=== PATIENT | female | born 1960 | race Caucasian/White ===

== ENCOUNTER 2021-07-21 11:28 | Observation (INO) | payer OTHER, SELFPAY ==
[2021-07-21] VITALS (35 sets, daily range): BP systolic 99–137; BP diastolic 67–87; PULSE 76–134; RESP 11–34; TEMP 36.1–37.2; O2SAT 92–99; BMI 25.8
--- NOTE | 2021-07-21 11:39 | DI.RAD.S_ITS ---
PROCEDURE: XR CHEST 1V INDICATIONS: chest pain TECHNIQUE: One view of the chest was acquired. COMPARISON: None. FINDINGS: Surgical changes and devices: Surgical clips are projected over the left lung base. Lungs and pleura: Lungs are clear. No pleural effusions or pneumothorax. Mediastinum: Mediastinal contours appear normal. Heart size is normal. Bones and chest wall: No suspicious bony lesions. Overlying soft tissues appear unremarkable. IMPRESSION: No acute cardiopulmonary findings. Dictated by: Rosanne Chau M.D. on 07/21/2021 at 12:34 Approved by: Rosanne Chau M.D. on 07/21/2021 at 12:34
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
[2021-07-21 11:46] LABS: Add Manual Diff / Slide Review NO; Basophils Absolute Auto 100 /uL (0-100); Eosinophils Absolute Auto 100 /uL (0-450); Eosinophils Percent Auto 1.6 % (2-4); Hematocrit 42.2 % (36-46); Hemoglobin 14.4 g/dL (12.0-16.0); Lymphocytes Absolute Auto 1000 /uL (1100-4500); Mean Corpuscular HGB Conc 34.2 % (30-36); Mean Corpuscular Hemoglobin 31.8 PG (26-34); Monocytes Absolute Auto 400 /uL (0-900); Monocytes Percent Auto 7.2 % (3-14); Neutrophils Absolute Auto 4100 /uL (1500-7000); Neutrophils Percent Auto 72.2 % (50-75); Platelet Count 180 X10^3/uL (150-400); Red Blood Cell Count 4.53 X10^6/uL (4.0-5.2); Red Cell Distribution Width 13.4 % (11.6-14.8); White Blood Cell Count 5.7 X10^3/uL (4.5-11.0)
[2021-07-21 11:55] LABS: Prothrombin Time 10.8 SECONDS (10.1-12.7)
[2021-07-21 11:57] LABS: PTT Partial Thromboplastin Tim 32 SECONDS (26.4-36.2)
[2021-07-21 11:59] LABS: Alanine Aminotransferase 34 IU/L (<35); Albumin 4.6 g/dL (3.5-5.0); Albumin Globulin Ratio 1.6 (1.0-2.8); Alkaline Phosphatase 40 U/L (38-126); Aspartate Aminotransferase 47 IU/L (14-36); BUN Creatinine Ratio 16.1 (6-22); Blood Urea Nitrogen 14 mg/dL (7-17); Calcium 9.4 mg/dL (8.4-10.2); Carbon Dioxide 28 mmol/L (22-32); Chloride 100 mmol/L (98-107); Creatine Kinase 78 U/L (30-135); Estimated Glomerular Filt Rate > 60.0 mL/min (>60); Globulin 2.9 g/dL (1.7-4.1); Glucose 132 mg/dL (70-100); HEMOLYSIS < 15 (0-50); Potassium 3.9 mmol/L (3.4-5.1); Sodium 136 mmol/L (137-145); Total Protein 7.5 g/dL (6.3-8.2)
[2021-07-21 12:11] LABS: Troponin I 0.021 ng/mL (0.01-0.034)
[2021-07-21 12:30] LABS: Thyroid Stimulating Hormone 1.57 uIU/mL (0.47-4.68)
[2021-07-21] MEDS: APIXABAN 5 MG TABLET PO ×2 (12:52→20:50)
[2021-07-21] MEDS: AMIODARONE 150 MG/100 ML PIGGYBACK 600 MG IV (12:53)
[2021-07-21] MEDS: AMIODARONE 360 MG/200 ML PIGGYBACK 33.33 MG IV (13:01)
--- NOTE | 2021-07-21 13:27 | PC.NURSE ---
Pt is retired [employer], very pleasant and cooperative. Arrives today with new onset of A-fib. EMS administered 10mg Diltiazem bolus and 324 ASA.
--- NOTE | 2021-07-21 13:57 | DI.ECHO.S_ITS ---
[facility]---------+ [facility] +---------+ : : [address] : : : : [id number] : : : : Phone: [phone]+ Echocardiogram Report + + :Name: CAMILA GUTIERREZ Study Date: 07/22/2021 Height: 67 in : :[facility] ReadingLocation: Weight: 165 lb : : Gender: Female BSA: 1.9 m2 : :: 1960 Age: 60 yrs BP: 116/70 mmHg: :Reason For Study: New onset atrial fibrillation : :Ordering Physician: MARIA R, : :TRAVON PRINCE Performed By: Rich Reynoso : :Referring: TRAVON HECK : + + Interpretation Summary The ejection fraction is estimated to be 55-60%. Both atria are normal in size. There is no significant valvular heart disease. Procedure: A two-dimensional transthoracic echocardiogram with color flow and Doppler was performed. The study quality was technically difficult. Most of the acoustic windows were suboptimal, but the best imaging was obtained from the parasternal window. There is no prior echocardiogram noted for this patient. Extremely poor apical window, potentially due to patients history of breast cacner. The patient was in normal sinus rhythm during the exam. Left Ventricle: The left ventricle is normal in size and wall thickness. There is borderline proximal septal thickening noted. The ejection fraction is estimated to be 55-60%. Left ventricular wall motion is normal. Right Ventricle: The right ventricle is normal in size and function. Atria: Both atria are normal in size. There is no Doppler evidence for an interatrial shunt. Mitral Valve: The mitral valve is normal. There is no mitral regurgitation noted. Aortic Valve: The aortic valve is trileaflet. The aortic valve opens well. No aortic regurgitation is present. Tricuspid Valve: The tricuspid valve is normal. There is mild tricuspid regurgitation. The right ventricular systolic pressure is estimated to be at least 28 mmHg based on an estimated right atrial pressure of 8 mm Hg. Pulmonic Valve: The pulmonic valve is normal in structure and function. Great Vessels: The aortic root is normal size. The ascending aorta is normal in size. The aortic arch is normal in size. The IVC is dilated (diameter is greater than 2.1 cm) yet it collapses greater than 50% with a sniff. This suggests a right atrial pressure of 8 mm Hg. Pericardium/ Pleura There is no pericardial effusion. There is an anterior echo-free space consistent with a fat pad. There is no pleural effusion. MMode/2D Measurements & Calculations LVIDd: 3.8 cm LVOT diam: 2.0 cm LVIDs: 2.6 cm Ao root diam: 2.9 cm FS: 33.0 % asc Aorta Diam: 2.8 cm IVSd: 1.1 cm Ao Arch Diam (Prox Trans): 2.4 cm LVPWd: 0.84 cm LV flores. diameter/BSA (cm/m^2): 2.1 LV sys. diameter/BSA (cm/m^2): 1.4 LA A2 area: 14.0 cm2 RA long axis: 4.8 cm LA A4 area: 14.3 cm2 RA area: 14.8 cm2 LA length (vol): 4.8 cm RA vol: 38.7 ml LA vol: 35.5 ml RA : 20.8 ml/m2 LA vol index: 19.0 ml/m2 IVC diam: 2.4 cm RVD1 (basal): 2.8 cm TAPSE: 1.8 cm Doppler Measurements & Calculations Ao V2 max: 111.9 cm/sec LVOT Max Khadar: 108.8 cm/sec Ao V2 mean: 84.2 cm/sec LV V1 max P.7 mmHg Ao max P.0 mmHg LV V1 VTI: 22.1 cm Ao mean P.0 mmHg DESTINY(I,D): 3.0 cm2 Ao V2 VTI: 23.2 cm DESTINY(V,D): 3.0 cm2 sev ratio: 0.95 DESTINY indexed to BSA (cm^2/m^2): 1.6 MV E max khadar: 76.9 cm/sec TR max khadar: 225.8 cm/sec MV A max khadar: 70.9 cm/sec TR max P.4 mmHg MV E/A: 1.1 Med Peak E' Khadar: 8.2 cm/sec E/E' med: 9.4 Lat Peak E' Khadar: 6.7 cm/sec E/E' lat: 11.5 E/e' average: 10.4 MV dec time: 0.19 sec SV([facility]): 68.7 ml Reading Physician:12:07 PM
[2021-07-21 14:22] LABS: Magnesium 1.6 mg/dL (1.6-2.3)
[2021-07-21 14:42] LABS: COVID19 - ADMIT (NP swab/PCR) Negative (Negative)
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
[2021-07-21] MEDS: DIVALPROEX DR 250 MG TABLET PO ×2 (15:14→20:50)
[2021-07-21] MEDS: MAGNESIUM CHLORIDE 64 MG TABLET 128 MG PO (17:09)
[2021-07-21 17:20] LABS: Phosphorous 3.2 mg/dL (2.5-4.5)
[2021-07-21] MEDS: AMIODARONE 360 MG/200 ML PIGGYBACK 16.7 MG IV (18:21)
[2021-07-21] MEDS: ANASTROZOLE 1 MG TABLET PO (20:49)
--- NOTE | 2021-07-21 22:22 | PC.NURSE ---
2100- Patient second set of triponins were elevated. Patient has no discomfort and no EKG changes. Will monitor closely.
[2021-07-22] VITALS (11 sets, daily range): BP systolic 116–131; BP diastolic 70–81; PULSE 74–101; RESP 14–28; TEMP 36.6–36.8; O2SAT 91–99; BMI 25.7
[2021-07-22 03:14] LABS: Add Manual Diff / Slide Review NO; Basophils Absolute Auto 100 /uL (0-100); Basophils Percent Auto 0.8 % (0-2); Eosinophils Absolute Auto 200 /uL (0-450); Eosinophils Percent Auto 2.5 % (2-4); Hematocrit 40.1 % (36-46); Hemoglobin 13.4 g/dL (12.0-16.0); Lymphocytes Absolute Auto 2200 /uL (1100-4500); Lymphocytes Percent Auto 31.7 % (25-40); Mean Corpuscular HGB Conc 33.5 % (30-36); Mean Corpuscular Hemoglobin 31.3 PG (26-34); Mean Corpuscular Volume 93.4 fL (80-100); Monocytes Absolute Auto 600 /uL (0-900); Monocytes Percent Auto 8.5 % (3-14); Neutrophils Absolute Auto 3900 /uL (1500-7000); Neutrophils Percent Auto 56.5 % (50-75); Platelet Count 161 X10^3/uL (150-400); Red Cell Distribution Width 13.3 % (11.6-14.8); White Blood Cell Count 6.9 X10^3/uL (4.5-11.0)
[2021-07-22 03:17] LABS: Phosphorous 3.8 mg/dL (2.5-4.5)
[2021-07-22 03:39] LABS: BUN Creatinine Ratio 21.7 (6-22); Blood Urea Nitrogen 15 mg/dL (7-17); Calcium 9.2 mg/dL (8.4-10.2); Carbon Dioxide 30 mmol/L (22-32); Chloride 99 mmol/L (98-107); Estimated Glomerular Filt Rate > 60.0 mL/min (>60); Glucose 105 mg/dL (70-100); HEMOLYSIS 25 (0-50); Magnesium 1.8 mg/dL (1.6-2.3); Potassium 4.3 mmol/L (3.4-5.1); Sodium 132 mmol/L (137-145)
[2021-07-22 03:47] LABS: Troponin I 0.192 ng/mL (0.01-0.034)
[2021-07-22] MEDS: AMIODARONE 360 MG/200 ML PIGGYBACK 16.6 MG IV (06:17)
[2021-07-22 06:57] LABS: Hemoglobin A1C% w Est Avg Glu 5.3 % (4.0-6.0)
--- NOTE | 2021-07-22 07:25 | PC.NURSE ---
0658: Pt converted to NSR.
[2021-07-22] MEDS: DIVALPROEX DR 250 MG TABLET PO (08:52)
[2021-07-22] MEDS: APIXABAN 5 MG TABLET PO (08:52)
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
--- NOTE | 2021-07-22 11:34 | PC.NURSE ---
1125: PIVs x2 and all monitoring equipment removed. Discharge packet reviewed with pt and , questions answered. Pt escorted to ED entrance via wheelchair.
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
--- NOTE | 2021-08-12 17:23 | PC.NURSE ---
Late Entry; Amiodarone infusion initiated 07/21 at 1821 complete 07/22 at 0617. Amiodarone infusion initiated 07/22 at 0617, stopped per discharge order 10:35.
== END 2021-07-22 11:35 | disposition home or self-care (01) ==
LOC: ED 12:36 → AC 12:53 → ICU 13:35
PROVIDERS: Nurse Practitioner Family; Admitting Provider Internal Medicine; Emergency Provider Emergency Medicine; PCP Family Medicine; Referring Provider Emergency Medicine; Visit Provider Internal Medicine
DX: I48.91 Unspecified atrial fibrillation (principal); R74.01 Elevation of levels of liver transaminase levels; G40.909 Epilepsy, unspecified, not intractable, without status epilepticus; I25.9 Chronic ischemic heart disease, unspecified; Z20.822 Contact with and (suspected) exposure to COVID-19
CPT/HCPCS: 36415; 71045; 80048; 80053; 82550; 83036; 83735; 84100; 84443; 84484; 85025; 85610; 85730; 87635; 87797; 93005; 93306; 96365; 96366; 96376; 99284; 99291; C9803; G0378; J0282